=== PATIENT | female | born 1995 | race Caucasian/White ===

== ENCOUNTER → 2018-03-15 | Outpatient (CLI) | payer BC ==
[2018-03-15 10:15] LABS: PLATELET COUNT, AUTOMATED 287 K/uL (150-450)
== END ==
LOC: LAB 08:36
PROVIDERS: ATTEND Student in an Organized Health Care Education/Training Program
DX: Z34.91 Encounter for supervision of normal pregnancy, unspecified, first trimester (principal)
CPT/HCPCS: 36415; 81001; 85025; 86592; 86703; 86762; 86850; 86900; 86901; 87088; 87340

== ENCOUNTER → 2018-03-25 | Outpatient (CLI) | payer BC ==
[~2018-03-25] MED LIST: AMOX-362 PO
== END ==
LOC: LAB 09:28
PROVIDERS: ATTEND Student in an Organized Health Care Education/Training Program
DX: Z34.91 Encounter for supervision of normal pregnancy, unspecified, first trimester (principal)
CPT/HCPCS: 87491; 87591

== ENCOUNTER → 2018-06-13 | Outpatient (CLI) | payer BC ==
[~2018-06-13] MED LIST changes: +FLU60VIA41 IM; +PREN-127 PO
--- NOTE | 2018-06-13 22:40 | RADIOLOGY IMAGING REPORT ---
FACILITY: [facility] PATIENT NAME: Brandie Nguyen : 1995 MR: [id number] V: [id number] EXAM DATE: ORDERING PHYSICIAN: MAJOR ORTIZ TECHNOLOGIST: Location: [facility] Patient: Brandie Nguyen : 1995 Visit/Account:[id number] Date of Sevice: 06/13/2018 Examination: Obstetric ultrasound COMPARISON: None available HISTORY: Anatomic survey. LMP: 02/04/2018 Gestational age based on LMP: 18 weeks 3 days ALFA based on LMP: 11/11/2018 FINDINGS: Standard transabdominal obstetric ultrasound. Uterus, cervix, and adnexa: Single intrauterine gestation in cephalic lie. Cervix is closed. Visualiz ed portions of the maternal adnexa are unremarkable. Placenta: Anterior placenta with no evidence of previa. anatomic survey: Fluid-filled urinary bladder. Visualized intracranial contents are within norm al limits; lateral ventricle atria measures 6 mm. Midline face is unremarkable. Four-chamber heart. C ardiac outflow tracts are unremarkable. 2 arms. Fluid-filled stomach. No pelviectasis. Midline abdominal three-vessel cord insertion with 2 umbilical arteries. 2 legs. Visualized spine is within n ormal limits although not seen in its entirety. Parameters: Biparietal diameter: 4.22 cm, 18 weeks 6 days Head circumference: 15.93 cm, 18 weeks 6 days Abdominal circumference: 13.70 cm, 19 weeks 1 day Femur length: 3.06 cm, 19 weeks 4 days Composite gestational age based on Hadlock criteria is 19 weeks 1 day for an estimated delivery date of 11/06/2018. Estimated weight is 281 g which is at the 89 percentile based on LMP. heart rate: 158 bpm. Amniotic fluid index (ELIZABETH): 12.4 cm. Largest pocket: 4.0 cm. IMPRESSION: 1. Single living intrauterine gestation. Gestational age based on sonographic criteria is concordant with the given gestational age. 2. Incomplete evaluation of the spine. Per report, repeat imaging is scheduled. 3. Anatomic survey is otherwise unremarkable. Report Dictated By: Gunnar Madrid MD at 06/13/2018 10:29 PM Report E-Signed By: Gunnar Madrid MD at 06/13/2018 10:37 PM WSN:[id number]
== END ==
LOC: LAB 09:18
PROVIDERS: ATTEND Student in an Organized Health Care Education/Training Program
DX: Z34.02 Encounter for supervision of normal first pregnancy, second trimester (principal); Z3A.18 18 weeks gestation of pregnancy
CPT/HCPCS: 36415; 81511

== ENCOUNTER → 2018-07-10 | Outpatient (CLI) | payer BC ==
--- NOTE | 2018-07-10 17:41 | RADIOLOGY IMAGING REPORT ---
FACILITY: [facility] PATIENT NAME: Brandie Nguyen : 1995 MR: [id number] V: [id number] EXAM DATE: ORDERING PHYSICIAN: MAJOR ORTIZ TECHNOLOGIST: Location: [facility] [place] Patient: Brandie Nguyen : 1995 Visit/Account:[id number] Date of Sevice: 07/10/2018 Exam type: OB LIMITED History: Follow-up spine images due to incomplete evaluation Comparison: June 13, 2018. Findings: Single fetus was demonstrated with a heart rate of 150 bpm additional images of the sacrum cerv ical thoracic and lumbar spine were unremarkable. Estimated gestational age by last nodule. Is 22 w eeks and two days IMPRESSION: 1. Additional images of the cervical thoracic and lumbar spine and sacrum are unremarkable Report Dictated By: Court Martinez MD at 07/10/2018 5:34 PM Report E-Signed By: Court Martinez MD at 07/10/2018 5:36 PM WSN:[id number]
== END ==
LOC: US 06-24 03:27
PROVIDERS: ATTEND Student in an Organized Health Care Education/Training Program
DX: Z34.92 Encounter for supervision of normal pregnancy, unspecified, second trimester (principal)

== ENCOUNTER 2018-08-03 14:24 | Emergency (ER) | payer BC ==
[2018-08-03 15:15] VITALS: BP 132/65
[2018-08-03] MEDS ORDERED: cefTRIAXone 250 MG VIAL IM ONE (17:20)
[2018-08-03] MEDS ORDERED: AZITHROMYCIN 250 MG TAB PO ONE (17:20)
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
== END 2018-08-03 17:56 | disposition home or self-care (01) ==
LOC: ER 17:48
DX: T76.21XA Adult sexual abuse, suspected, initial encounter (principal); Z3A.26 26 weeks gestation of pregnancy
CPT/HCPCS: 96372; 99284; J0696; Q0144

== ENCOUNTER → 2018-08-08 | Outpatient (CLI) | payer BC ==
[~2018-08-08] MED LIST changes: +DIPH0.5D12 IM
[2018-08-08 09:32] LABS: PLATELET COUNT, AUTOMATED 260 K/uL (150-450)
== END ==
LOC: LAB 07:58
PROVIDERS: ATTEND Student in an Organized Health Care Education/Training Program
DX: Z34.92 Encounter for supervision of normal pregnancy, unspecified, second trimester (principal)
CPT/HCPCS: 36415; 82950; 85025

== ENCOUNTER → 2018-10-14 | Outpatient (CLI) | payer BC ==
[~2018-10-14] MED LIST changes: +METR-1 PO
== END ==
LOC: LAB 11:46
PROVIDERS: ATTEND Student in an Organized Health Care Education/Training Program
DX: Z36.85 Encounter for antenatal screening for Streptococcus B (principal)
CPT/HCPCS: 87081

== ENCOUNTER 2018-11-10 14:35 | Inpatient (IN) | payer BC, MEDICAID ==
[~2018-11-10] VITALS: Ht 172.7 cm; Wt 86.2 kg
[~2018-11-10 14:35] MED LIST changes: -DIPH0.5D12 IM; +DIPH0.5S2 IM
[2018-11-10 14:58] VITALS: BP 117/77; Ht 172.7 cm; Wt 86.2 kg
[2018-11-10] MEDS ORDERED: LR(*) 1000 ML BAG 1,000 ML IV SCH (17:57)
[2018-11-10] MEDS ORDERED: OXYTOCIN 30 UNIT/D5LR 500 ML 500 ML IV PRN (17:57)
[2018-11-10] MEDS ORDERED: FAMOTIDINE(*) 20MG/50ML PREMIX 50 ML IVPB PRN (17:57)
[2018-11-10] MEDS ORDERED: FLUSH 10 ML SYR IVP PRN (18:00)
[2018-11-10] MEDS ORDERED: METOCLOPRAMIDE 10 MG/2 ML SDV IVP PRN (18:00)
[2018-11-10] MEDS ORDERED: LIDOCAINE 1% LOCAL 300 MG/30ML INJ PRN (18:00)
[2018-11-10] MEDS ORDERED: fentaNYL CITR 100 MCG/2 ML AMP IVP PRN (18:00)
[2018-11-10] MEDS ORDERED: LIDOCAINE/SOD BICARB 8.4% SYR SC PRN (18:00)
[2018-11-10 18:33] LABS: PLATELET COUNT, AUTOMATED 282 K/uL (150-450)
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
[2018-11-10] MEDS ORDERED: ZOLPIDEM TARTRATE 5 MG TAB PO PRN (20:05)
[2018-11-11] MEDS ORDERED: ePHEDrine 25 MG/5 ML DISP.SYR IVP PRN (01:35)
[2018-11-11] MEDS ORDERED: fentaNYL CITR 100 MCG/2 ML AMP IT PRN (01:35)
[2018-11-11] MEDS ORDERED: FENTANYL/ROPIVACAINE 100 ML BAG EPI PRN (01:35)
[2018-11-11] MEDS ORDERED: ONDANSETRON 4 MG/2 ML VIAL IVP PRN (01:35)
[2018-11-11] MEDS ORDERED: BUPIVACAINE 0.5% INJ 30ML VIAL EPI PRN (01:35)
[2018-11-11] MEDS ORDERED: LIDO/EPI 2% MPF 1:200,000 20ML EPI PRN (01:35)
[2018-11-11] MEDS ORDERED: LIDOCAINE/PF 2% 200MG/10ML AMP 200 MG/10 ML AMPUL EPI PRN (01:35)
[2018-11-11] MEDS ORDERED: BUPIVACAINE 0.25% MPF INJ EPI PRN (01:35)
--- NOTE | 2018-11-11 03:41 | Anesthesia OB Pre-Anes Eval ---
History of Present Illness Anesthesia Start Date: Nov 11, 2018 Anesthesia Start Time: 02:06 OB Anesthesia Diagnosis: spontaneous labor EDC: Nov 11, 2018 : 1 Para: 0 Pain Ratin Result Diagram: 11/10/18 181 Height (Inches): 68.00 Weight (Pounds): 190 Past Medical History Medical History: asthma (childhood) Surgical History: other (dental) Previous Anesthesia: other (first laboring epidural) Attended Childbirth Classes?: No Hx Anesthesia Reactions: No Hx Family Anesthesia Reaction: No Home Meds Reported Medications Vits W-Ca,Fe,Fa(<1MG) ( VITAMINS) 1 Each Tablet, 1 EACH PO DAILY, TAB 04/22/18 Allergies: Coded Allergies: No Known Drug Allergies (Unverified , 03/15/18) Anesthesia OB ROS Neurological: No migraines/headaches, No seizures, No neuropathy, No other ENT: Denies Tooth caps, Denies Loose teeth, Denies Chipped teeth, Denies Dentures, Denies Bridges, Denies Retainers, Denies Veneers, Denies Implants, Denies Tongue ring, Denies Other Pulmonary: asthma (childhood); No smoker (pks/day/yrs), No other Airway Class: ll Cardiovascular ROS: No edema, No arrhythmia, No other GI ROS: clear liquids Last Solids Date: Nov 10, 2018 Last Solids Time: 17:00 ROS: No Herpes, No STD(s), No Liver Disease, No Renal Disease, No Other Endocrine ROS: No diabetes, No gestational diabetes, No thyroid disorder, No other Musculoskeletal ROS: No low back pain, No low back injury, No scoliosis, No other ASA Classification: 2 Assessment and Plan Anesthesia Plan: CSE Anesthesia Stop Day: Nov 11, 2018 Anesthesia Stop Time: 11:00 Epidural Catheter Removal: Removed Catheter Intact, Yes, Removed by: (Annabel NUR) Removal Date: Nov 11, 2018 Removal Time: 11:00 NITISH SIERRA CRNA Nov 11, 2018 03:41
--- NOTE | 2018-11-11 03:45 | Procedure Note ---
Anesthetic Placement Note Anesthesia Plan: CSE Permit for Anesthesia Signed: Yes Anesthesia Technique: Patient Sitting Anesthesia Prep: Chlorhexidine Interspace: L 3-4 Local Anesthetic: 1% Lidocaine, 25 Gauge Needle Amount Local - cc's: 3 Anesthesia Needle: 17g Touhy/Schliff Anesthesia Attempts: 2 Loss of Resistance: Normal Saline Depth of JIMBO (cm): 5.2 Epidural Needle Placement: No CSF, No Blood, No Parasthesia Intrathecal Needle: 27 Gauge Pencan Cerebral Spinal Fluid: Yes, Clear Catheter Insertion (cm): 10.5 Catheter Type: Reddy - Spring Wound Epidural Dressing: Tegaderm, Tape Anesthesia Tray: Lot Number ([id number]), Expiration Date (03/29/2020), Reference Number ([id number]) Anesthesia Medications: Intrathecal Dose: Time (0305), Other (5mg 1% lido) Epidural Test Dose: 1.5 Lido/Epi (1:200,000), Dose - mL (3), Time (0308), Negative Epidural Infusion: 0.2% Ropivicaine, With Fentanyl 2mcg/ml, Start Time: (0325) Epidural Pump Setting: Bolus Dose - mL (4), Lockout - Minutes (20), Maintenance Rate - mL/hr (8), Maximum per Hour - mL (16) Complications: None NITISH SIERRA CRNA Nov 11, 2018 03:45
[2018-11-11] MEDS ORDERED: ceFAZolin(*) 2GM/D5W 50ML 50 ML IVPB ONE ×2 (07:30→15:30)
[2018-11-11] MEDS ORDERED: INFLUENZA VIRUS VAC 0.5ML SYR IM ONLY ONE (08:25)
[2018-11-11] MEDS ORDERED: APAP/HYDROCODONE 325/5 TAB PO PRN (08:25)
[2018-11-11] MEDS ORDERED: BENZOCAINE 20% 60 ML BTL TP PRN (08:25)
[2018-11-11] MEDS ORDERED: DIPHTH/TETANUS/ACEL. PERTUSSIS IM ONLY ONE (08:25)
[2018-11-11] MEDS ORDERED: GLYCERIN/WITCH HAZEL LEAF 1 PK TP PRN (08:25)
[2018-11-11] MEDS ORDERED: ACETAMINOPHEN 325 MG TAB PO PRN (08:25)
[2018-11-11] MEDS ORDERED: HYDROCORTISONE 2.5% CR 30GM TB PR PRN (08:25)
[2018-11-11] MEDS ORDERED: MEASLES,MUMP,RUBELLA VAC 0.5ML SUBQ ONE (08:25)
[2018-11-11] MEDS ORDERED: MAGNESIUM HYDROXIDE* 30ML UDCP PO PRN (08:25)
[2018-11-11] MEDS ORDERED: LANOLIN OINT 7 GM TUBE TP PRN (08:25)
[2018-11-11] MEDS: DOCUSATE CALCIUM 240 MG CAP PO SCH ×2 (09:00→21:00)
--- NOTE | 2018-11-11 09:05 | OB Delivery Note ---
Delivery Note Vaginal Delivery Type: Spont. Vaginal Delivery Delivery Date: Nov 11, 2018 Delivery Time: 07:06 Estimated Gestational Age(wks): 40 Length of Labor Stage I (hrs): 4 (43 min) Length of Labor Stage II (hrs): 2 (13 min) Labor Stage III (minutes): 6 Delivery Anesthesia: Epidural Sex: Male Weight (gms): 3634 (8 lbs) [place] Apgars: 1 Minute (9), 5 Minute (9) Repair Needed: Laceration (3A repaired per Dr. Stevens), Vaginal, Perineal Estimated Blood Loss: 350 Delivery Complications: Laceration Notes: pt was admitted yesterday at 1700 at 4/75/-1 and was inna irregularly. Pt walked and continued to have irregular UCs. Pt was reassessed at 2200 and was still 4/75/-1 but softer, denied feeling contractions Was medicated with ambien and slept until 1am when she awoke inna and was 5/80/-1. Pt progressed to 8 cm and obtained an epidural. Pt continued with a Cat 1 strip and at 0453 started feeling pressure and was complete. Pt began active pushing efforts at 0530. Pt pushed in a semi fowlers position. Pt delivered a viable male in the KINGSLEY position. No nuchal cord was noted, anterior shoulder delivered followed by the posterior should with a compound R hand. Baby was placed on mothers abdomen. Had a strong spontaneous cry. Delayed cord clamping x 60 sec. Cord was clamped and cut, 3 VC noted. Placenta delivered at 0712. Large amount of trailing membranes. Manual sweep performed. Ancef 2gm IVPB given. Perineum was inspected and a 3A lacertation noted and repaired by Dr. Stevens. with 3-0 Vicryl. Mom and baby were stable at time of note. Placenta is intact, battledore insertion. Mail Service Coordinator in Attendence: CATRACHITA Chaves CNM Nov 11, 2018 09:05
[2018-11-11] MEDS: IBUPROFEN 800 MG TAB PO SCH ×2 (11:21→18:20)
[2018-11-11 11:44] VITALS: BP 113/63
[2018-11-11 16:10] VITALS: BP 113/55
--- NOTE | 2018-11-11 16:24 | Labor Progress Note ---
Labor Subjective Progress Notes Subjective Present for repair only. Asked to evaluate for possible 3rd degree laceration. 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 Second-degree was closed with 3-0 Vicryl in a running manner. Bleeding was controlled patient was cleaned and allowed to continue to monitor baby. MAJOR ORTIZ DO Nov 11, 2018 16:24
[2018-11-11 21:00] VITALS: BP 99/69
[2018-11-12 03:00] VITALS: BP 96/61
[2018-11-12] MEDS: IBUPROFEN 800 MG TAB PO SCH ×3 (03:00→17:52)
[2018-11-12] MEDS: DOCUSATE CALCIUM 240 MG CAP PO SCH (08:46)
[2018-11-12 08:55] VITALS: BP 113/78
--- NOTE | 2018-11-12 08:56 | OB/GYN Progress Note ---
OB Subjective Progress Notes Subjective Doing good this morning. Tolerating PO intake. Ambulatory in room and cortez. Voiding with out any problems. Lochia appropriate. Some difficulty with . GI: NEG Nausea, NEG Vomiting, NEG Flatus, NEG Bowel Movement : Voiding Well, Vaginal Bleeding, Moderate Pain: Mild, Comfortable, Tolerating PO Pain Meds Neurological: No Headache, No Other Eyes: No Visual Disturbances OB Objective Physical Exam Vital Signs Date Time Temp Pulse Resp B/P (MAP) Pulse Ox O2 Delivery O2 Flow Rate FiO2 11/12/18 03:00 97.8 86 16 96/61 (73) 86 Room Air Intake and Output 11/12/18 06:59 Intake Total 1620 ml Balance 1620 ml Intake Oral 120 ml IV Total 1500 ml # Voids 3 General Appearance: Alert/Awake/No Acute Distress Neurological: No Gross deficits Eyes: PERRLA ENT: Normal Neck: No Masses Cardiovascular: Normal Rhythm & Peripheral Pulses, Regular Rate and Rhythm Respiratory: Clear to Auscultation Abdomen: Soft, Non-Tender, Non-Distended, Fundus Firm Extremities: Warm, Reflexes (2 +) Integumentary: Skin Intact without Lesions or Rash Psychological: Alert & Oriented X3 Result Diagram: 11/12/18 0600 Assessment and Plan 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 Follow up in 2 weeks. MAJOR ORTIZ DO Nov 12, 2018 08:56
[2018-11-12] MEDS ORDERED: IBUP800T37 PO (08:59)
--- NOTE | 2018-11-12 09:03 | OB/GYN Discharge Summary ---
Discharge Summary Reason for Hosp/Final Diag: (1) Uterine contractions Status: Resolved (2) Supervision of normal first Status: Resolved (3) care following vaginal delivery Hospital Course & Plan: Pt presented in active labor Sunday evening. She progressed to complete and delivered a live born male infant over a 3rd degree MLL. Pt remained in the hospital for 1 day post . She was ambulatory, voiding, tolerating PO intake, and meeting all post gaols. Once she felt comfortable with she was discharged home. Pt to follow up in 2 weeks. Lates Vital Signs Vital Signs Date Time Temp Pulse Resp B/P (MAP) Pulse Ox O2 Delivery O2 Flow Rate FiO2 11/12/18 03:00 97.8 86 16 96/61 (73) 86 Room Air Weight (Pounds): 190 Result Diagram: 11/12/18 0600 Condition: Improved Home Meds Reported Medications Vits W-Ca,Fe,Fa(<1MG) ( VITAMINS) 1 Each Tablet, 1 EACH PO DAILY, TAB 04/22/18 Follow up with: [facility] [phone], Dr. Stevens [phone] Follow up in: 6 wks PP or PO, 2 wks PO Discharge Diet: As Tolerates Discharge Activity: As Tolerates, Pelvic Rest MAJOR STEVENS DO Nov 12, 2018 09:03
[2018-11-12 14:30] VITALS: BP 117/74
== END 2018-11-12 20:30 | disposition home or self-care (01) | DRG 768 ==
LOC: OB 14:35 → PED 11-11 18:13
PROVIDERS: ADMIT Obstetrics & Gynecology; ATTEND Obstetrics & Gynecology
PROC: 10E0XZZ Delivery of Products of Conception, External Approach (ICD-10-PCS; principal; 2018-11-11)
PROC: 0DQR0ZZ Repair Anal Sphincter, Open Approach (ICD-10-PCS; 2018-11-11)
DX: O32.6XX0 Maternal care for compound presentation, not applicable or unspecified (principal); Z37.0 Single live birth; O70.21 Third degree perineal laceration during delivery, IIIa; Z3A.40 40 weeks gestation of pregnancy
CPT/HCPCS: 36415; 85025; 85027; 86703; 86850; 86900; 86901; J0690